=== PATIENT | female | born 1960 | race Caucasian/White ===

== ENCOUNTER → 2020-08-11 | Outpatient (CLI) | payer OTHER ==
[~2020-08-11] MED LIST: CRESTOR20 MG PO; HYDROXYZINE50 MG PO; LISINOPRIL/HCTZ1 TA2 PO; LOPRESSOR50 MG PO; MEDI-FIRST ASP325 MG PO; PLAVIX 75MG TAB75 MG PO; SYNTHROID0.025 MG PO; ZESTRIL2.5 MG PO
== END ==
LOC: COL.RAD 09:45
DX: M48.02 Spinal stenosis, cervical region (principal)

== ENCOUNTER → 2020-08-12 | Outpatient (CLI) | payer OTHER | LOC: COL.RAD 08:53 | DX: M67.854 Other specified disorders of tendon, left hip (principal); R20.0 Anesthesia of skin ==

== ENCOUNTER → 2022-05-19 | Outpatient (CLI) | payer OTHER | LOC: COL.RAD 11:51 | DX: R20.0 Anesthesia of skin (principal) ==